=== PATIENT | female | born 1990 | race Caucasian/White ===

== ENCOUNTER 2017-09-22 20:01 | Emergency (ER) | payer MEDICARE, OTHER ==
[~2017-09-22] VITALS: Ht 172.7 cm; Wt 80.0 kg
[~2017-09-22 20:01] MED LIST: PERC10TA27 PO; PROM1SUP12 PR
[2017-09-22 20:07] VITALS: BP 102/55; PULSE 79; RESP 16; TEMP 97.6; O2SAT 100
[2017-09-22] MEDS ORDERED: KETOROLAC TROMETHAMINE 30 MG/ML (IVP) VIAL IV PUSH ONE (20:15)
[2017-09-22] MEDS ORDERED: SODIUM CHLORIDE 0.9% FLUSH 10 ML FLUSH IVF PRN (20:15)
--- NOTE | 2017-09-22 20:17 | PD ---
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 Symptoms started while at work. The patient reports that she has had irregular periods and her body is having a hard time shutting her uterine lining. She has not had a menstrual period in 4 months. Patient was given sublingual nitro and 324 mg of aspirin by EMS prior to arrival. Upon arrival she reports that her chest pain has resolved, however she has lower abdominal cramping. She states that she has a tingling sensation in her right hand and feels as though there is a knot in the palm of her hand. No fevers. She is currently on Cipro for a UTI. No known history of cardiac disease. She reports family history of cardiac disease in her grandmother. She does not smoke or use illicit drugs. No history of abdominal surgeries. 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) Implanted Vascular Access Dvce: No Musculoskeletal: Yes Neurologic: No Psychiatric: No Reproductive: No Immunizations Current: No (HAS AN IMMUNE COMPROMISING CONDITION) ?: Not LMP: 4 months ago but usually irregular Menopausal: No : 0 Para: 0 Miscarriage: 0 : 0 Past Surgical History Other Surgery: Yes (POWER PORT 2012) Social History Alcohol Use: No Tobacco Use: No Substance Use: No Allergies-Medications (Allergen,Severity, Reaction): Coded Allergies: morphine (Unverified Allergy, Intermediate, PANIC ATTACKS, SOB, 09/22/17) "MY BRAIN MAKES ME FREAK OUT, ITS A MENTAL REACTION" azithromycin (Unverified Adverse Reaction, Intermediate, Nausea/Vomiting, 09/22/17) Reported Meds & Prescriptions Reported Meds & Active Scripts Active Reported Ciprofloxacin (Ciprofloxacin HCl) 500 Mg Tab 500 Mg PO BID Tramadol (Tramadol HCl) 50 Mg Tab 50 Mg PO BID PRN [Ivig] 1 Injection IV EVERY 3 WEEKS Review of Systems Except as stated in HPI: all other systems reviewed are Neg Physical Exam Narrative GENERAL: Well-developed, well-nourished, appears anxious, no apparent distress. SKIN: Focused skin assessment warm/dry. HEAD: Atraumatic. Normocephalic. EYES: Pupils equal and round. No scleral icterus. No injection or drainage. ENT: Mucous membranes pink and moist. NECK: Trachea midline. No JVD. CARDIOVASCULAR: Regular rate and rhythm. RESPIRATORY: No accessory muscle use. Clear to auscultation. Breath sounds equal bilaterally. GASTROINTESTINAL: Abdomen soft, nondistended. Mild lower abdominal/suprapubic tenderness without peritoneal signs. Normal bowel sounds. No hernias. 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 Normal external genitalia. Significant amount of purulent discharge from the cervical os. Moderate uterine tenderness MUSCULOSKELETAL: No obvious deformities. No clubbing. No cyanosis. No edema. NEUROLOGICAL: Awake and alert. No obvious cranial nerve deficits. Motor grossly within normal limits. Normal speech. PSYCHIATRIC: Appropriate mood and affect; insight and judgment normal. Data Data Last Documented VS Vital Signs Date Time Temp Pulse Resp B/P (MAP) Pulse Ox O2 Delivery O2 Flow Rate FiO2 09/22/17 22:52 67 18 101/77 (85) 99 Room Air 09/22/17 20:07 97.6 Orders Orders Electrocardiogram (09/22/17 20:13) Ckmb (Isoenzyme) Profile (09/22/17 20:13) Complete Blood Count With Diff (09/22/17 20:13) Comprehensive Metabolic Panel (09/22/17 20:13) D-Dimer (09/22/17 20:13) Prothrombin Time / Inr (Pt) (09/22/17 20:13) Act Partial Throm Time (Ptt) (09/22/17 20:13) Troponin I (09/22/17 20:13) Lipase (09/22/17 20:13) Ecg Monitoring (09/22/17 20:13) Iv Access Insert/Monitor (09/22/17 20:13) Oximetry (09/22/17 20:13) Sodium Chloride 0.9% Flush (Ns Flush) (09/22/17 20:15) Chest, Pa & Lat (09/22/17 20:13) Beta Hcg (Quant/Titer) (09/22/17 20:13) Ketorolac Inj (Toradol Inj) (09/22/17 20:15) Urinalysis - C+S If Indicated (09/22/17 20:34) Ct Abd/Pel W Iv Contrast(Rout) (09/22/17 21:12) Gc And Chlamydia Pcr (09/22/17 21:12) Wet Prep Profile (09/22/17 21:12) Diatrizoate Liq ( Gastrooscar Liq) (09/22/17 21:15) Oral Contrast - Adult (09/22/17 21:18) Ceftriaxone Inj (Rocephin Inj) (09/22/17 21:45) Azithromycin Powd Pack (Zithromax Powd P (09/22/17 21:45) Doxycycline (Vibramycin) (09/22/17 22:00) Iohexol 350 Inj (Omnipaque 350 Inj) (09/22/17 22:33) Sodium Chlor 0.9% 1000 Ml Inj (Ns 1000 M (09/22/17 23:00) Labs Laboratory Tests Test 09/22/17 20:18 09/22/17 21:34 09/22/17 22:40 White Blood Count 3.2 TH/MM3 Red Blood Count 3.58 MIL/MM3 Hemoglobin 10.4 GM/DL Hematocrit 30.5 % Mean Corpuscular Volume 85.1 FL Mean Corpuscular Hemoglobin 28.9 PG Mean Corpuscular Hemoglobin Concent 34.0 % Red Cell Distribution Width 16.5 % Platelet Count 61 TH/MM3 Mean Platelet Volume 7.8 FL Neutrophils (%) (Auto) 59.5 % Lymphocytes (%) (Auto) 29.0 % Monocytes (%) (Auto) 11.0 % Eosinophils (%) (Auto) 0.1 % Basophils (%) (Auto) 0.4 % Neutrophils # (Auto) 1.9 TH/MM3 Lymphocytes # (Auto) 0.9 TH/MM3 Monocytes # (Auto) 0.3 TH/MM3 Eosinophils # (Auto) 0.0 TH/MM3 Basophils # (Auto) 0.0 TH/MM3 CBC Comment AUTO DIFF Differential Comment AUTO DIFF CONFIRMED Platelet Estimate LOW Platelet Morphology Comment NORMAL Red Cell Morphology Comment NORMAL Prothrombin Time 11.0 SEC Prothromb Time International Ratio 1.1 RATIO Activated Partial Thromboplast Time 27.9 SEC D-Dimer Quantitative (PE/DVT) 0.39 MG/L FEU Blood Urea Nitrogen 11 MG/DL Creatinine 1.06 MG/DL Random Glucose 72 MG/DL Total Protein 7.2 GM/DL Albumin 3.7 GM/DL Calcium Level 8.9 MG/DL Alkaline Phosphatase 284 U/L Aspartate Amino Transf (AST/SGOT) 51 U/L Alanine Aminotransferase (ALT/SGPT) 28 U/L Total Bilirubin 0.4 MG/DL Sodium Level 137 MEQ/L Potassium Level 3.5 MEQ/L Chloride Level 103 MEQ/L Carbon Dioxide Level 24.5 MEQ/L Anion Gap 10 MEQ/L Estimat Glomerular Filtration Rate 62 ML/MIN Total Creatine Kinase 53 U/L Troponin I LESS THAN 0.02 NG/ML Lipase 227 U/L Human Chorionic Gonadotropin, Quant LESS THAN 1 MIU/ML Clue Cells (Wet Prep) NONE SEEN Vaginal Trichomonas (Wet Prep) NONE SEEN Vaginal Yeast (Wet Prep) NONE SEEN Urine Color LIGHT-YELLOW Urine Turbidity CLEAR Urine pH 7.0 Urine Specific [place] 1.010 Urine Protein NEG mg/dL Urine Glucose (UA) NEG mg/dL Urine Ketones NEG mg/dL Urine Occult Blood NEG Urine Nitrite NEG Urine Bilirubin NEG Urine Urobilinogen LESS THAN 2.0 MG/DL Urine Leukocyte Esterase LARGE Urine WBC 3 /hpf Urine Squamous Epithelial Cells <1 /hpf Urine Bacteria FEW /hpf Microscopic Urinalysis Comment CULT NOT INDICATED MDM Medical Decision Making Medical Screen Exam Complete: Yes Emergency Medical Condition: Yes Interpretation(s) EKG: Sinus, rate 84, normal axis, normal intervals, no acute ischemic abnormality. Differential Diagnosis Atypical chest pain, anxiety, ACS, pneumothorax, pneumonia, PE, pericarditis, menstrual cramps, ovarian cyst, ovarian torsion, PID, appendicitis less likely Narrative Course Initial vital signs show heart rate 79, blood pressure 102/55, pulse ox 100% on room air, oral temperature 97.6F. CBC: WBC 3.2, hemoglobin 10.4, hematocrit 30.5, platelets 61. This pancytopenia is around the patient's baseline CMP is remarkable for creatinine 1.06, GFR 62 Cardiac enzymes are negative. Chest x-ray shows no acute disease. Patient's pelvic exam is consistent with PID. She was given Rocephin. The patient was not given azithromycin as she has an allergy. She will be started on doxycycline instead. She continues to complain of lower abdominal pain. CT abdomen and pelvis will be ordered. UA: Large leukocyte esterase, few bacteria, culture not indicated. CT abdomen pelvis: CONCLUSION: 1. Splenomegaly. 2. Patchy heterogeneous perfusion is noted to both kidneys with areas of broad decreased enhancement identified. Main renal arteries and veins are patent. I discussed the CT findings with the reading radiologist Dr. Maldonado who believes of the abnormal renal findings are more likely infectious etiology. This makes sense as the patient is currently being treated for UTI with Cipro. Patient was made aware of all findings and provided a copy of her CT abdomen pelvis report. She is resting comfortably and feels improved. I do not believe her chest pain was cardiopulmonary in nature. At this point I believe she is stable for discharge home with outpatient follow-up with a primary care physician this week. 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 She was advised on when to return to the emergency department. She verbalizes understanding and agreement with plan. Diagnosis Primary Impression: Atypical chest pain Additional Impression: PID (acute pelvic inflammatory disease) Referrals: Primary Care Physician 3 days Additional Instructions: Follow-up with a primary care physician this week. Return to the emergency department for worsening symptoms or any other concerns. Disposition: 01 DISCHARGE HOME Condition: Stable Orlin Doe MD Sep 22, 2017 20:17
[2017-09-22] MEDS ORDERED: CIPR500T2 PO (20:23)
[2017-09-22] MEDS ORDERED: TRAM50TA PO (20:23)
[2017-09-22] MEDS ORDERED: IVIG IV (20:23)
[2017-09-22 20:36] LABS: AUTOMATED NEUTROPHIL # 1.9 TH/MM3 (1.8-7.7); BASOPHIL % 0.4 % (0.0-2.0); EOSINOPHIL % 0.1 % (0.0-4.0); HEMATOCRIT 30.5 % (35.0-46.0); HEMOGLOBIN 10.4 GM/DL (11.6-15.3); LYMPHOCYTE # 0.9 TH/MM3 (1.0-4.8); MEAN CELL VOLUME 85.1 FL (80.0-100.0); MEAN CORPUSCULAR HEMOGLOBIN 28.9 PG (27.0-34.0); MEAN PLATELET VOLUME 7.8 FL (7.0-11.0); MONOCYTE # 0.3 TH/MM3 (0-0.9); NEUT % 59.5 % (16.0-70.0); PLATELET COUNT 61 TH/MM3 (150-450); RED BLOOD COUNT 3.58 MIL/MM3 (4.00-5.30); RED CELL DISTRIBUTION WIDTH 16.5 % (11.6-17.2); WHITE BLOOD COUNT 3.2 TH/MM3 (4.0-11.0)
--- NOTE | 2017-09-22 20:46 | RADRPT ---
EXAM DATE/TIME: 09/22/2017 20:36 [facility] COMPARISON: No previous studies available for comparison. INDICATIONS : Chest pain and tightness for one day. MEDICAL HISTORY : None. SURGICAL HISTORY : Power port. ENCOUNTER: Initial ACUITY: 1 day PAIN SCORE: 2/10 LOCATION: Bilateral chest FINDINGS: PA and lateral views of the chest demonstrate the lungs to be symmetrically aerated without evidence of mass, infiltrate or effusion. The cardiomediastinal contours are unremarkable. Osseous structure s are intact. Right-sided portacatheter is present the tip overlies expected location of the SVC/righ t atrial junction. CONCLUSION: No acute disease. Oswaldo Maldonado MD on September 22, 2017 at 20:45 Board Certified Radiologist. This report was verified electronically.
[2017-09-22 20:51] LABS: ALBUMIN 3.7 GM/DL (3.4-5.0); ALT (GPT) 28 U/L (10-53); AST (GOT) 51 U/L (15-37); BICARBONATE 24.5 MEQ/L (21.0-32.0); BLOOD UREA NITROGEN 11 MG/DL (7-18); CALCIUM 8.9 MG/DL (8.5-10.1); CHLORIDE 103 MEQ/L (98-107); CREATININE 1.06 MG/DL (0.50-1.00); GLOMERULAR FILTRATION RATE 62 ML/MIN (>89); GLUCOSE,RANDOM 72 MG/DL (74-106); INTERNATIONAL NORMALIZED RATIO 1.1 RATIO; SODIUM (NA) 137 MEQ/L (136-145)
[2017-09-22 20:54] LABS: D-DIMER 0.39 MG/L FEU (0.00-0.50)
[2017-09-22 20:56] LABS: ALKALINE PHOSPHATASE 284 U/L (45-117); TOTAL BILIRUBIN ADULT 0.4 MG/DL (0.2-1.0); TOTAL PROTEIN 7.2 GM/DL (6.4-8.2); TROPONIN I LESS THAN 0.02 NG/ML (0.02-0.05)
[2017-09-22] MEDS ORDERED: DIATRIZOATE MEGLUM/DIATRIZOATE SOD 9 ML CUP PO ONE (21:15)
[2017-09-22 21:33] VITALS: BP 106/73; PULSE 74; RESP 18; O2SAT 97
[2017-09-22] MEDS ORDERED: AZITHROMYCIN PWD FOR SUSP 1 GM PACKET PO ONE (21:45)
[2017-09-22] MEDS ORDERED: cefTRIAXone INJ 1,000 MG in SODIUM CHLORIDE 0.9% INJ 100 ML IV ONE (21:45)
[2017-09-22] MEDS ORDERED: DOXYCYCLINE HYCLATE 100 MG CAP PO ONE (22:00)
[2017-09-22] MEDS ORDERED: IOHEXOL 350 MG/ML 10 ML VIAL (for RAD DIAG) IVCONTRAST ONE (22:33)
--- NOTE | 2017-09-22 22:41 | RADRPT ---
EXAM DATE/TIME: 09/22/2017 22:26 [facility] COMPARISON: No previous studies available for comparison. INDICATIONS : Right lower abdominal pain. IgA & IgG immune deficiency. IV CONTRAST: 95 cc Omnipaque 350 (iohexol) IV ORAL CONTRAST: Prescribed oral contrast ingested. RADIATION DOSE: 7.04 CTDIvol (mGy) MEDICAL HISTORY : Hernia, hiatal. SURGICAL HISTORY : Left Power Port ENCOUNTER: Initial ACUITY: 1 day PAIN SCALE: 8/10 LOCATION: Bilateral abdomen TECHNIQUE: Volumetric scanning of the abdomen and pelvis was performed. Using automated exposure control and ad justment of the mA and/or kV according to patient size, radiation dose was kept as low as reasonably achievable to obtain optimal diagnostic quality images. DICOM format image data is available electro nically for review and comparison. FINDINGS: The lung bases are clear. Osseous structures are intact. No pleural or pericardial effusions are seen . Cholelithiasis is noted deep portion of the gallbladder. There is splenomegaly with a diffusely het erogeneous appearance of the spleen, the spleen measuring 18.1 cm in AP dimension. Urinary bladder, u terus and adnexa are unremarkable. No evidence of bowel obstruction. There is no adenopathy or aneury sm. No adnexal masses. The renal veins and renal arteries are patent. Of concern is an abnormal heter ogeneous enhancement of the bilateral kidneys with broad areas of decreased enhancement seen to the r ight mid and lower pole, patchy perfusion to the upper pole and diminished enhancement of the left ki dney as well in a heterogeneous however diffuse pattern. There is no adjacent perinephric fluid or pe rinephric stranding. CONCLUSION: 1. Splenomegaly. 2. Patchy heterogeneous perfusion is noted to both kidneys with areas of broad decreased enhancement identified. Main renal arteries and veins are patent. Oswaldo Maldonado MD on September 22, 2017 at 22:36 Board Certified Radiologist. This report was verified electronically.
[2017-09-22 22:52] VITALS: BP 101/77; PULSE 67; RESP 18; O2SAT 99
[2017-09-22] MEDS ORDERED: SODIUM CHLOR 0.9% 1000 ML INJ 1,000 ML IV ONE (23:00)
[2017-09-22 23:30] LABS: BACTERIA, URINE FEW /hpf; BILIRUBIN, URINE NEG (NEG); BLOOD, URINE NEG (NEG); GLUCOSE,URINE NEG (NEG); KETONE, URINE NEG (NEG); NITRITE,URINE NEG (NEG); SQUAMOUS EPITHELIAL CELL URINE <1 /hpf (0-5); URINE COLOR LIGHT-YELLOW (YELLW/STRAW); URINE LEUKOCYTE ESTERASE LARGE (NEG)
[2017-09-22 23:55] VITALS: BP 100/71
--- NOTE | 2017-09-23 09:41 | EKG ---
Date Performed: 09/22/2017 Time Performed: 20:10:32 PTAGE: 27 years EKG: Sinus rhythm NORMAL ECG PREVIOUS TRACING : 05/12/2012 23.00 DOCTOR: Vik Gamboa Interpretating Date/Time 09/23/2017 09:40:08
== END 2017-09-23 00:07 | disposition home or self-care (01) ==
LOC: NEPC 20:01
DX: R07.89 Other chest pain (principal); N73.9 Female pelvic inflammatory disease, unspecified; N89.8 Other specified noninflammatory disorders of vagina; R16.1 Splenomegaly, not elsewhere classified; N39.0 Urinary tract infection, site not specified; R20.0 Anesthesia of skin; R20.2 Paresthesia of skin; D83.9 Common variable immunodeficiency, unspecified; M08.90 Juvenile arthritis, unspecified, unspecified site
CPT/HCPCS: 71046; 74177; 80053; 81001; 82550; 83690; 84484; 84702; 85025; 85379; 85610; 85730; 87210; 87491; 87591; 93005; 96361; 96365; 96375; 99285; J0696; J1885; J7030; Q9963; Q9967

== ENCOUNTER 2017-11-08 17:57 | Emergency (ER) | payer MEDICARE, OTHER ==
[~2017-11-08] VITALS: Ht 172.7 cm; Wt 80.0 kg
[~2017-11-08 17:57] MED LIST changes: +CIPR500T2 PO; +IVIG IV; -PERC10TA27 PO; -PROM1SUP12 PR; +TRAM50TA PO
[2017-11-08 18:10] VITALS: BP 113/74; PULSE 99; RESP 16; TEMP 98.9; O2SAT 97
--- NOTE | 2017-11-08 19:08 | PD ---
HPI Chief Complaint: ENT Complaint Time Seen by Provider: 18:58 Travel History International Travel<30 days: No Contact w/Intl Traveler<30days: No Traveled to known affect area: No History of Present Illness HPI 27-year-old female presents emergency department with sinus congestion , headache, sore throat, generalized body aches and fever, cough, posttussive emesis 1 yesterday, and nausea. Patient denies ear pain. She has felt feverish but has no specific fever recorded. She denies diarrhea or abdominal pain. No shortness of breath or wheezing. Patient states the symptoms started 2 days ago. Her cough is worse when she lays down at night. She is allergic to azithromycin and morphine. 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) Implanted Vascular Access Dvce: No Medical other: No Musculoskeletal: Yes Neurologic: No Psychiatric: No Reproductive: No Immunizations Current: No (HAS AN IMMUNE COMPROMISING CONDITION) Pneumonia: Yes ?: Not LMP: 4-15-18 Menopausal: No : 0 Para: 0 Miscarriage: 0 : 0 Past Surgical History Other Surgery: Yes (POWER PORT 2012) Social History Alcohol Use: No Tobacco Use: No Substance Use: No Allergies-Medications (Allergen,Severity, Reaction): Coded Allergies: morphine (Unverified Allergy, Intermediate, PANIC ATTACKS, SOB, 11/08/17) "MY BRAIN MAKES ME FREAK OUT, ITS A MENTAL REACTION" azithromycin (Unverified Adverse Reaction, Intermediate, Nausea/Vomiting, 11/08/17) Reported Meds & Prescriptions Reported Meds & Active Scripts Active Reported Ciprofloxacin (Ciprofloxacin HCl) 500 Mg Tab 500 Mg PO BID Tramadol (Tramadol HCl) 50 Mg Tab 50 Mg PO BID PRN [Ivig] 1 Injection IV EVERY 3 WEEKS Review of Systems Except as stated in HPI: all other systems reviewed are Neg General / Constitutional: Positive: Fever (Subjective), Chills Eyes: No: Visual changes HENT: Positive: Headaches, Sore Throat, Rhinitis, Rhinorrhea, Congestion, No: Vertigo, Lightheadedness, Nosebleed, Neck Stiffness, Neck Pain, Ear Discharge, Earache Cardiovascular: No: Chest Pain or Discomfort Respiratory: Positive: Cough, No: Shortness of Breath, Wheezing, Orthopnea, Hemoptysis, Night Sweats, Pleuritic Pain Gastrointestinal: Positive: Nausea, Vomiting, No: Diarrhea, Abdominal Pain Genitourinary: No: Urgency, Frequency, Dysuria, Discharge Musculoskeletal: No: Pain Skin: No Rash Neurologic: No: Weakness Psychiatric: No: Depression Endocrine: No: Polydipsia Hematologic/Lymphatic: No: Easy Bruising Physical Exam Narrative GENERAL: Patient appears ill but not septic SKIN: Warm and dry. Normal color. Normal turgor. HEAD: Atraumatic. Normocephalic. Patient has moderate sinus tenderness in both frontal maxillary sinuses. EYES: Pupils equal and round. No scleral icterus. No injection or drainage. ENT: No nasal bleeding or discharge. Mucous membranes pink and moist. Pharynx has injection and postnasal drip noted in the posterior pharynx with cobblestoning noted. No significant tonsillitis or exudate. TMs are clear bilaterally. NECK: Trachea midline. Supple without significant lymphadenopathy per CARDIOVASCULAR: Regular rate and rhythm. RESPIRATORY: No accessory muscle use. Clear to auscultation. Breath sounds equal bilaterally. GASTROINTESTINAL: Abdomen soft, non-tender, nondistended. Hepatic and splenic margins not palpable. MUSCULOSKELETAL: Extremities without clubbing, cyanosis, or edema. No obvious deformities. NEUROLOGICAL: Awake and alert. No obvious cranial nerve deficits. Motor grossly within normal limits. Five out of 5 muscle strength in the arms and legs. Normal speech. PSYCHIATRIC: Appropriate mood and affect; insight and judgment normal. Data Data Last Documented VS Vital Signs Date Time Temp Pulse Resp B/P (MAP) Pulse Ox O2 Delivery O2 Flow Rate FiO2 11/08/17 18:10 98.9 99 16 113/74 (87) 97 Orders Orders Influenzae A/B Antigen (11/08/17 18:12) Group A Rapid Strep Screen (11/08/17 18:12) Ondansetron Odt (Zofran Odt) (11/08/17 19:30) Ibuprofen (Motrin) (11/08/17 19:30) Amoxicillin (Trimox) (11/08/17 19:30) Oseltamivir (Tamiflu) (11/08/17 19:30) MDM Medical Decision Making Medical Screen Exam Complete: Yes Emergency Medical Condition: Yes Differential Diagnosis Influenza. Strep throat. Sinusitis. Postnasal drip. Narrative Course I believe the patient has sinusitis, but also has positive influenza A swab Patient is treated with Tamiflu 75 mg twice daily 5 days. Patient also given amoxicillin 875 twice daily for 10 days. Patient started on Flonase nasal spray 2 sprays each nostril daily. Patient also given Zofran 4 mg 1 every 6 hours as needed nausea #12. Patient is given ibuprofen 600 mg 4 times daily #40. Work note is given for 5 days. Patient to follow-up if symptoms worsen as needed. Diagnosis Primary Impression: H1N1 influenza Additional Impression: Acute non-recurrent pansinusitis Patient Instructions: General Instructions, H1N1 Influenza (ED), Sinusitis (ED) Departure Forms: Work Release Enter return to work date: Nov 12, 2017 Special Instructions: The patient has influenza and should not work until the . Additional Instructions: I believe the patient has sinusitis, but also has positive influenza A swab Patient is treated with Tamiflu 75 mg twice daily 5 days. Patient also given amoxicillin 875 twice daily for 10 days. Patient started on Flonase nasal spray 2 sprays each nostril daily. Patient also given Zofran 4 mg 1 every 6 hours as needed nausea #12. Patient is given ibuprofen 600 mg 4 times daily #40. Work note is given for 5 days. Patient to follow-up if symptoms worsen as needed. Med/Other Pt SpecificInfo: Prescription(s) given Scripts Ondansetron (Zofran) 4 Mg Tab 4 MG PO Q6HR Y for NAUSEA OR VOMITING, #12 TAB 0 Refills Prov: Chino Jimenez MD 11/08/17 Ibuprofen (Ibuprofen) 600 Mg Tab 600 MG PO Q6H Y for Pain/Inflammation, #40 TAB 0 Refills Prov: Chino Jimenez MD 11/08/17 Fluticasone Nasal [place] (Flonase Nasal [place]) 50 Mcg/Act [place] 100 MCG EACH NARE BID for Allergies, #1 BOTTLE 0 Refills Prov: Chino Jimenez MD 11/08/17 Amoxicillin (Amoxicillin) 875 Mg Tab 875 MG PO BID for Infection for 10 Days, #20 TAB 0 Refills Prov: Chino Jimenez MD 11/08/17 Oseltamivir (Tamiflu) 75 Mg Cap 75 MG PO BID for Mgmt Viral Infection for 5 Days, #10 CAP 0 Refills Prov: Chino Jimenez MD 11/08/17 Disposition: 01 DISCHARGE HOME Condition: Stable [place] Nov 08, 2017 19:08
[2017-11-08] MEDS ORDERED: FLUT1SPR5 EACH NARE (19:21)
[2017-11-08] MEDS ORDERED: AMOX875T PO (19:21)
[2017-11-08] MEDS ORDERED: OSEL75 PO (19:21)
[2017-11-08] MEDS ORDERED: IBUP-232 PO (19:21)
[2017-11-08] MEDS ORDERED: ZOFR4TAB PO (19:21)
[2017-11-08] MEDS ORDERED: OSELTAMIVIR PHOSPHATE 75 MG CAP PO ONE (19:30)
[2017-11-08] MEDS ORDERED: AMOXICILLIN 875 MG TAB PO ONE (19:30)
[2017-11-08] MEDS ORDERED: IBUPROFEN 600 MG TAB PO ONE (19:30)
[2017-11-08] MEDS ORDERED: ONDANSETRON ODT 4 MG TAB PO ONE (19:30)
== END 2017-11-08 20:04 | disposition home or self-care (01) ==
LOC: NEPK 17:57
DX: J09.X2 Influenza due to identified novel influenza A virus with other respiratory manifestations (principal); J01.40 Acute pansinusitis, unspecified
CPT/HCPCS: 87081; 87804; 87880; 99283